=== PATIENT | female | born 1965 | race Caucasian/White ===

== ENCOUNTER 2024-12-06 07:22 | Outpatient (CLI) | payer OTHER ==
[2024-12-06 08:04] LABS: BASO % 0.6 % (0.1-1.2); EOS # 0.20 (0.04-0.54); EOS % 2.8 % (0.7-7.0); LYMPH # 1.92 (1.18-3.74); LYMPH % 26.8 % (19.3-53.1); MEAN PLATELET VOLUME 10.70 fl (9.4-12.4); MONO # 0.49 (0.24-0.82); MONO % 6.8 % (4.7-12.5); NEUT # 4.49 (1.56-6.13); NEUT % 62.6 % (34.0-71.1); RED CELL DISTRIBUTION WIDTH 12.5 % (11.6-14.4)
[2024-12-06 08:09] LABS: URINE APPEARANCE Clear; URINE BILIRRUBIN Negative (NEGATIVE); URINE BLOOD Trace; URINE COLOR Yellow; URINE GLUCOSE Negative (NEGATIVE); URINE KETONE Negative (NEGATIVE); URINE LEUKOCYTE Small; URINE NITRATE Negative; URINE PROTEIN Negative (NEGATIVE); URINE UROBILINOGEN 1.0 E.U./dl
[2024-12-06 08:10] LABS: URINE BACTERIA 1006.5 uL (0.0-1933); URINE EPITHELIAL CELLS 8.7 uL (0.0-38.8); URINE RBC 9.9 uL (0.0-20.8); URINE WBC 117.0 uL (0.0-23.2)
[2024-12-06 08:12] LABS: URINE CAST 0.58 uL (0.0-1.40)
[2024-12-06 09:43] LABS: ALT/SGPT 26.0 U/L (12-78); AST/SGOT 16.0 U/L (15-37); BILIRUBIN TOTAL 0.78 mg/dL (0.3-1.2); BUN CREA RATIO 26.0 (7.0-25.0); CHOL HDL RATIO 2.8 (0-5.0); CREATININE SERUM 0.73 mg/dL (0.55-1.02); GFR 81.32; GLOBULINA 3.8 G/DL (2.4-3.5); GLUCOSE FASTING 102.0 mg/dL (65-100); HDL 82.0 mg/dl (40-60); LDL 135.0 mg/dl (0-130); OSMOLALITY SERUM 289.0 MOSM/KG (275-295); VLDL 9.0 (0-39)
[2024-12-06 09:46] LABS: TSH 5.69 uIU/mL (0.358-3.74)
== END 2024-12-06 07:34 | disposition home or self-care (01) ==
LOC: LAB 07:22
PROVIDERS: ATTEND General Practice
DX: E03.9 Hypothyroidism, unspecified (principal); E78.5 Hyperlipidemia, unspecified; N39.0 Urinary tract infection, site not specified; I10 Essential (primary) hypertension